=== PATIENT | male | born 1960 | race Caucasian/White ===

== ENCOUNTER 2021-03-04 12:14 | Emergency (ER) | payer OTHER ==
[~2021-03-04 12:14] MED LIST: CARDIZEM CD240 MG PO; COZAAR25 MG PO; FLOMAX 0.4 MG0.4 MG PO; NORCO 5-325 TA1 EACH PO; NORCO 7.5-3251 EACH PO; PROTONIX40 MG PO
== END 2021-03-04 15:20 | disposition home or self-care (01) ==
LOC: ER1 12:14
DX: S01.01XA Laceration without foreign body of scalp, initial encounter (principal); I10 Essential (primary) hypertension; W22.8XXA Striking against or struck by other objects, initial encounter; Z23 Encounter for immunization
CPT/HCPCS: 12002; 70450; 90471; 90714; 99284

== ENCOUNTER 2021-10-19 12:51 | Emergency (ER) | payer OTHER ==
[~2021-10-19 12:51] MED LIST changes: +CETIRIZINE HCL10 MG PO; +COREG 12.5MG12.5 MG PO
[2021-10-19] MEDS ORDERED: BACTROBAN OINT22 GM TOP (14:05)
[2021-10-19] MEDS ORDERED: CEPHALEXIN500 MG PO (14:05)
== END 2021-10-19 14:12 | disposition home or self-care (01) ==
LOC: ER1 12:51
DX: S61.210A Laceration without foreign body of right index finger without damage to nail, initial encounter (principal); W26.0XXA Contact with knife, initial encounter
CPT/HCPCS: 12001; 99283